=== PATIENT | male | born 1995 | race Caucasian/White ===

== ENCOUNTER 2020-03-28 18:12 | Emergency (ER) | payer SELFPAY ==
--- NOTE | ~2020-03-28 | XR_ITS ---
EXAMINATION: XR ankle RT 2V DATE: 03/28/2020 19:28 INDICATION: Right ankle fracture status post reduction. TECHNIQUE: 2 views of right ankle were obtained. COMPARISON: Right ankle radiographs at 6:35 PM FINDINGS: There is a comminuted fracture of distal fibular diaphysis. The main distal fracture fragme nt demonstrates 7 mm posterior displacement and 3 degrees medial angulation. There is a coronal fract ure of posterior malleolus with 2 mm displacement. There is an oblique fracture of medial malleolus. The distal fracture fragment demonstrates 7 degrees lateral angulation. Ankle soft tissue swelling is noted. IMPRESSION: 1. Fractures of the posterior and medial malleoli and distal fibular diaphysis with improvement in al ignment. Reviewed, dictated and finalized at location A. IMPRESSION: 1. Fractures of the posterior and medial malleoli and distal fibular diaphysis with improvement in alignment.
--- NOTE | ~2020-03-28 | XR_ITS ---
EXAMINATION: XR ankle RT 2V DATE: 03/28/2020 18:35 INDICATION: Right ankle injury and pain. TECHNIQUE: 2 views of right ankle were obtained. COMPARISON: None. FINDINGS: There is a comminuted fracture of distal fibular diaphysis with medial aspect of the fractu re line 5.2 cm proximal to the level of the tibial plafond. The main distal fracture fragment demonst rates 8 degrees lateral angulation and 20 degrees posterior angulation and one cortical width lateral displacement. There is a comminuted fracture of medial malleolus. The main distal fracture fragment demonstrates lateral angulation. There is a displaced fracture of posterior malleolus. The posterior fracture fragment demonstrates 14 mm lateral displacement. There is lateral and posterior subluxation of talar dome with respect to tibial plafond. Other joint spaces are normal. Ankle soft tissue swell ing is noted. IMPRESSION: 1. Fractures of the medial and posterior malleoli and distal fibular diaphysis. Reviewed, dictated and finalized at location A.
--- NOTE | ~2020-03-28 | CT_ITS ---
EXAMINATION: CT ankle RT wo con DATE: 03/28/2020 20:14 INDICATION: Right ankle injury. TECHNIQUE: Computed tomography (CT) of the right ankle was performed without intravenous contrast. Au tomated exposure control and iterative reconstruction technique were employed. The dose-length produc t was 541.45 mGy-cm. COMPARISON: Right ankle radiographs 03/28/2020 FINDINGS: There is a comminuted fracture of distal fibular diaphysis with medial aspect of the fractu re line 4.8 cm proximal to the level of the tibial plafond. The main distal fracture fragment demonst rates 3 mm lateral displacement, 8 degrees lateral angulation, 3 mm posterior displacement, and 4 deg abhinav posterior angulation. There is a coronal fracture of posterior malleolus. The posterior fracture fragment demonstrates 2 mm proximal displacement and 4 mm posterior displacement. There is a comminu renan fracture of medial malleolus. The main distal fracture fragment demonstrates 8 mm distraction pos teriorly, 32 degrees lateral angulation, and 24 degrees anterior angulation. There is a 5 mm fracture fragment in the medial ankle mortise posteriorly. IMPRESSION: 1. Fractures of the medial and posterior malleoli and distal fibular diaphysis. Reviewed, dictated and finalized at location A.
[2020-03-28 18:16] VITALS: BP 124/80; PULSE 89; RESP 20; TEMP 36.9; O2SAT 99
[2020-03-28] MEDS: MORPHINE SULFATE (*CRX) 4 MG/ML INJ IV PUSH (19:11)
[2020-03-28] MEDS: MIDAZOLAM HCL (*CRX) 2 MG/2 ML VIAL IV PUSH (19:11)
--- NOTE | 2020-03-28 19:17 | ED.LOWEXIN ---
HPI - Extremity Injury (Lower) General Chief Complaint: Extremity Injury, Lower Stated Complaint: AMB History of Present Illness HPI Narrative: this is a 24-year-old male that presents with some an injury to his right ankle after he was some home wrestling with some friend and misstepped and caused eversion of his right ankle causing inability to ambulate and EMS was called and EN route he was given fentanyl for pain. Currently there is a strong bruit brisk pedal pulse on the right there is no numbness but there is some tingling in his foot and toes has movement in his distal extremity pain level is about a 10/10. No other significant past medical history takes no medication. MD complaint: leg injury and ankle injury Onset (ago): hour(s) Injury: Right: ankle (Deformity) Type of Injury: eversion Place: home Severity: severe Severity scale (1-10): >10 Relieving factors: immobilization Exacerbating factors: weight bearing, movement and palpation Context: fall Associated symptoms: snap/pop sensation, swelling, tingling and unable to bear weight Other symptoms: none Treatments prior to arrival: cold therapy Related Data Allergies Allergy/AdvReac Type Severity Reaction Status Date / Time No Known Allergies Allergy Unverified 03/28/20 18:34 Review of Systems Review of Systems: All systems reviewed & are unremarkable except as noted in HPI and below PMFSH Past Medical History Medical History Patient denies medical problems Social History Social History Gender identity (if verbalized by the patient): Male Exam Const: General: no acute distress and alert Orientation/consciousness: patient oriented x3 Limitations: altered mental status HENMT: Head: normal to inspection Eyes: Conjunctivae: conjunctivae normal Pupils: Equal, round and reactive pupils present EOM: EOMs intact bilaterally Direct Ophthalmoscopy: no photophobia Neck: Neck: normal visual inspection, no lymphadenopathy and no meningeal signs Chest: Chest palpation & inspection: normal inspection of the chest and abnormal inspection of the chest Resp: Effort & Inspection: normal respiratory effort Auscultation: clear to auscultation bilaterally Cardio: Rate: regular rate Rhythm: regular rhythm GI: GI Palp: Yes Soft to palpation Auscultation: normal bowel sounds Neuro: General: patient oriented x3, moves all extremities, no meningeal signs and no focal motor deficits Extrem: Other: deformity of his right ankle with pain with palpation in his right lower leg, has a strong brisk pedal pulse on the right and has movement and is toes. Psych: Appearance: grossly normal and well kempt Mental Status: mental status grossly normal Affect: normal affect and Anxious affect present Attitude: cooperative Course Course Emergency Course: Reassessment after x-ray of his lower leg which did show fractures of the distal fibula and fracture of the medial malleolus and displaced fracture of the posterior malleolus. The ankle displacement was reduced. The patient was given 1 mg IV Versed and was given 4 mg IV of morphine prior to reduction of his some right ankle. Spoke with orthopedic physician psychologist [employer] personnel and will repeat the post reduction x-ray. Spoke to orthopedics and recommend follow-up in his office within a week, and CT scan of the right ankle prior to discharge. Vital Signs Vital signs: Vital Signs Temperature 36.9 C 03/28/20 18:16 Pulse Rate 89 03/28/20 18:16 Respiratory Rate 03/28/20 18:16 Blood Pressure 124/80 03/28/20 18:16 Pulse Oximetry 99 03/28/20 18:16 Temperature 36.9 C 03/28/20 18:16 Pulse Rate 89 03/28/20 18:16 Respiratory Rate 20 03/28/20 18:16 Blood Pressure 124/80 03/28/20 18:16 Pulse Oximetry 99 03/28/20 18:16 Procedures Orthopedic Joint Reduction Joint #1: Orthopedic Joint Reduct
[2020-03-28 19:30] VITALS: BP 121/89; PULSE 82; RESP 20; O2SAT 100
[2020-03-28 20:53] VITALS: BP 130/60; PULSE 90; RESP 20; O2SAT 100
== END 2020-03-28 20:53 | disposition home or self-care (01) ==
PROVIDERS: Emergency Provider Emergency Medicine
DX: S82.831A Other fracture of upper and lower end of right fibula, initial encounter for closed fracture (principal); S82.891A Other fracture of right lower leg, initial encounter for closed fracture; X58.XXXA Exposure to other specified factors, initial encounter
CPT/HCPCS: 27818; 73600; 73700; 96374; 96375; 99284; 99285; J2250; J2270

== ENCOUNTER 2020-03-29 13:14 | Observation (INO) | payer BC, SELFPAY ==
[2020-03-29] VITALS (13 sets, daily range): BP systolic 107–156; BP diastolic 78–93; PULSE 83–118; RESP 12–19; TEMP 36.1–37.1; O2SAT 97–100
--- NOTE | ~2020-03-29 | XR_ITS ---
EXAMINATION: XR surgery orthopedic DATE: 03/29/2020 19:08 INDICATION: Right ankle fracture. TECHNIQUE: 8 intraoperative fluoroscopic views of right ankle were obtained. I was not present. Fluor oscopy exposure time was 270 seconds. COMPARISON: Right ankle radiographs 03/28/2020 FINDINGS: There is a comminuted fracture of distal fibular diaphysis in near-anatomic alignment statu s post open reduction internal fixation with semitubular plate and multiple screws. There is a fractu re of medial malleolus in near-anatomic alignment status post open reduction internal fixation with l ag screw. There is a fracture of posterior malleolus in near-anatomic alignment status post open redu ction internal fixation with 2 lag screws. There is a band across the tibiofibular syndesmosis. IMPRESSION: 1. Fractures of medial and posterior malleoli and distal fibular diaphysis status post open reduction internal fixation. Reviewed, dictated and finalized at location A. IMPRESSION: 1. Fractures of medial and posterior malleoli and distal fibular diaphysis stat us post open reduction internal fixation.
--- NOTE | 2020-03-29 13:59 | ED.LOWEXIN ---
HPI - Extremity Injury (Lower) General Chief Complaint: Extremity Injury, Lower Stated Complaint: leg injury Time Seen by Provider: 03/29/20 13:23 Source: patient and family Mode of arrival: ambulatory Limitations: no limitations History of Present Illness HPI Narrative: 24-year-old male Was wrestling with a relative yesterday, and when he went to [facility] said relative his foot slipped and got caught in a dog gate which resulted in in his ankle being fractured and his relative winning the reid He reported to the ED at [place] yesterday where he had x-rays had a fracture dislocation reduced and had a splint put on He was asked to come over here today to be evaluated as a possible added onto the OR schedule He has no medical problems He enjoys his marijuana and his THC wax in addition to 3 or 4 airline sized bottles of alcohol a day and in fact the wrestling match occurred after same MD complaint: leg injury Related Data Allergies Allergy/AdvReac Type Severity Reaction Status Date / Time No Known Allergies Allergy Verified 03/29/20 13:22 Review of Systems Review of Systems: All systems reviewed & are unremarkable except as noted in HPI and below PMFSH Social History Social History Gender identity (if verbalized by the patient): Male Exam Const: General: healthy appearing, no acute distress and well developed Nutritional Appearance: well nourished Orientation/consciousness: patient oriented x3 (alert) and Other orientation findings (Alert) Limitations: no limitations HENMT: Head: normocephalic and atraumatic General nose exam: No nasal discharge present Face and sinus: face symmetric Mouth: Yes tongue normal and Yes moist mucous membranes Throat: other (No exudate, no erythema) Eyes: Conjunctivae: conjunctivae normal Sclera: sclerae normal EOM: EOMs intact bilaterally Neck: Neck: full ROM, no lymphadenopathy and supple Thyroid: thyroid normal Resp: Effort & Inspection: normal respiratory effort Auscultation: other (breath sounds equal) Cardio: Heart sounds: no gallops GI: GI Palp: No abdominal tenderness Auscultation: other (bowel sounds present) Back/Spine/Pelvis: Thoracic/Lumbar Spine: thoracic and lumbar spine normal to inspection Skin: General skin exam: normal color and no rashes or lesions noted Neuro: General: patient oriented x3 (alert), moves all extremities and no focal motor deficits Cranial nerves: Yes facial symmetry Speech: normal speech Motor exam (neuro): Motor abnormalities not present Extrem: General: full ROM Other: Right lower leg has a intact short leg splint on it Sensation to light touch, cap refill, and movement of the toes are all normal Psych: Affect: normal affect Course Vital Signs Vital signs: Vital Signs Temperature 36.8 C 03/29/20 13:23 Pulse Rate 109 H 03/29/20 13:23 Respiratory Rate 17 03/29/20 13:23 Blood Pressure 128/90 03/29/20 13:23 Pulse Oximetry 98 03/29/20 13:23 Temperature 36.8 C 03/29/20 13:23 Pulse Rate 109 H 03/29/20 13:23 Respiratory Rate 17 03/29/20 13:23 Blood Pressure 128/90 03/29/20 13:23 Pulse Oximetry 98 03/29/20 13:23 MDM - Extremity Injury (Lower) MDM Narrative Medical decision making narrative: Seen by Dr. Villarreal and will be taken to the OR for ORIF Discharge Plan Discharge Clinical Impression: Ankle fracture, right Patient Disposition: Still a Patient Condition: Stable Prescriptions: No Action oxycodone-acetaminophen [Percocet] 5-325 mg tablet 1 tablet PO Q6H PRN (Reason: pain) Qty: 30 RF: 0 Follow-up/Referrals: PHYSICIAN,HOSPITALITY TEAM MEMBER [Primary Care Provider] -
--- NOTE | 2020-03-29 14:27 | WPDHPUPDATE1 ---
History and Physical Update Update Date/Time: 03/29/20 14:27 History and Physical has been reviewed, including an updated exam of the patient. There are NO changes in the patient's condition. Risks, benefits, and alternatives have been discussed and questions answered. Patient agrees to proceed with procedure.
--- NOTE | 2020-03-29 14:27 | PM.CNOR ---
Assessment and Plan Additional Plan This patient is a 24-year-old male who presented last night to the [place] emergency room with a Baca type fracture dislocation of the right ankle. He has a comminuted mid fibular shaft fracture with wide diastasis between the distal fibular shaft and the tibia in association with a type 2A posterior malleolus fracture and a medial malleolus fracture. He underwent successful closed reduction by the emergency room physician and he was placed into a short-leg splint well padded. A CT scan was then obtained which demonstrated that the posterior malleolus fragment is 1 sizable piece with a 2 mm chip in the joint space that will need to be removed. It demonstrated no other fracture than as described above. The CT scan showed moderate residual subluxation of the tibiotalar joint however. He reported some partial numbness on the bottom of his foot while the ankle was dislocated but that has since resolved and he states he has no numbness or tingling now. He was not reachable this morning and we left several messages and when he did rise and answering his messages we had him come to the emergency room as soon as possible here for inspection of degree of swelling and he arrived here at about 130 and his splint was removed and he does have a little bit of and erythema spot over the dorsum of the midfoot which is likely from the splint wrapped and he has diffuse ecchymosis medially and moderate soft swelling medially but no swelling laterally or posterolaterally whatsoever. He states he was visual into in keeping his leg elevated throughout the night. His past medical history is unremarkable. He has no known drug allergies he has no history of prior surgeries or medical problems. His enjoyed excellent health. He does smoke marijuana and has smoked since age 11. On examination today he is intermittently and a fair amount of distress because of pain. He denies numbness light touch testing on the right foot. He has a 2+ dorsalis pedis pulse palpable. There is no pedal edema the only swelling is medially. The skin is intact. He has no tenderness at the proximal 1/3 of the calf or knee and denies any other injury. Heart and lung auscultation would be documented on the anesthesia evaluation note. Patient was present with his mother and I discussed the nature of the injury with both of them and I have explained that the only way to treat this properly as with open reduction internal fixation and the best results can be achieved with a direct approach the posterior malleolus in the prone position. A posterolateral plate would be applied to the fibula and the medial malleolus would be fixed with 1 or 2 cannulated screws and he will need syndesmotic fixation which would be performed with a tight rope device by Ar[employer] in all likelihood. I have discussed risks of complications with them in detail. It is a fairly high risk that he will develop some posttraumatic arthritis in this ankle over the years. I discussed the risk of injury to peripheral nerves such as the superficial branch of peroneal nerve which could leave numbness in the foot, risk of infection and blood clots and medical complications were discussed. As he does not had yet have significant swelling in the lateral or posterolateral ankle I have recommended proceeding today with open reduction internal fixation as discussed above. Patient and mother are in agreement and we will proceed as discussed. History of Present Illness HPI Consult date: 03/29/20 Chief complaint: leg injury [facility] Social History Social History Gender identity (if verbalized by the patient): Male Meds Home Medications and Allergies Home Medications Medication Instructions Recorded Confirmed Type oxycodone-acetaminophen [Percocet] 1 tablet PO Q6H PRN #30 tablet 03/28/20 Rx Allergies Allergy/AdvReac Type Severity Reaction Statu
[2020-03-29] MEDS: LACTATED RINGERS 1,000 ML 30 ML IV CONT ×3 (15:15→20:11)
[2020-03-29] MEDS: ACETAMINOPHEN 500 MG TABLET 1000 MG PO ×2 (15:25→23:00)
[2020-03-29] MEDS: KETOROLAC 15 MG/ML VIAL (*BKC) IV PUSH ×2 (15:25→23:00)
--- NOTE | 2020-03-29 15:25 | P.PNAN_ITS ---
Anes - Initial Pre Proc Eval Procedure: Operation Date: 03/29/20 14:45 Proposed Procedures p Open Reduction Internal Fixation Right Ankle Fracture(Right) - Yvan Tirado MD Date/Time: 03/29/20 15:25 Surgeon: Yvan Tirado MD Pre Op Diagnosis: leg injury Patient Data Age: 24 Gender: M Height: 5 ft 10 in Weight: 72 kg Last Vital Signs Temp 36.8 C 03/29/20 13:23 Pulse 99 03/29/20 14:22 Resp 16 03/29/20 14:22 BP 130/79 03/29/20 14:22 Pulse Ox 98 03/29/20 14:22 Allergies Allergy/AdvReac Type Severity Reaction Status Date / Time No Known Allergies Allergy Verified 03/29/20 13:22 Home Medications Medication Instructions Recorded Confirmed Type oxycodone-acetaminophen [Percocet] 1 tablet PO Q6H PRN #30 tablet 03/28/20 Rx Patient hx anesthesia problems: none Family hx anesthesia problems: none PMFSH Past Medical History Medical History Patient denies medical problems Social History Social History Gender identity (if verbalized by the patient): Male Anes - Eval Final PreProcedure Day of Procedure 03/29/20 15:25 Patient weight: normal Heart: regular rate and rhythm Lungs: decreased breath sounds Airway: Mallampati scale class II Neurological: alert and oriented Last oral intake: >/= 8 hours ASA classification: II Emergent: yes Anesthetic plan: proceed Anesthesia type and monitoring: general ETT and standard monitoring Informed Consent: The patient's anesthetic plan and its attendant risks and benefits were discussed with the patient/family/POA. Questions were solicited an d answers provided to the satisfaction of the patient/family/POA.
[2020-03-29] MEDS: ceFAZolin 2 GM/D5W 50 ML 2 GM/50 ML BAG IVPB (15:26)
[2020-03-29] MEDS: ceFAZolin SODIUM 1 GM VIAL IRRIGATION (16:07)
--- NOTE | 2020-03-29 16:58 | SUR.OPER ---
Dr. Tirado made aware of 1 hour tourniquet time
[2020-03-29] MEDS: ceFAZolin SODIUM 1 GM VIAL IV PUSH (17:44)
--- NOTE | 2020-03-29 19:08 | PM.PROC ---
Procedure Note - Detailed Date of procedure: 03/29/20 Pre-op diagnosis: leg injury Comminuted Duron C trimalleolar right ankle fracture dislocation with syndesmotic disruption Post-op diagnosis: same Procedure performed: open reduction internal fixation of Duron C trimalleolar right ankle fracture with syndesmotic stabilization Description of procedure: patient brought to the operating room and general anesthesia was administered. He was rolled to the prone position and supported on the silicone chest rolls and transverse pelvic roll his scrotum and penis were position without pressure and the right leg prepped draped usual fashion. He received 2 g of Ancef weight based vancomycin preoperatively. The right leg was scrubbed with chlorhexidine cloth before positioning and this was allowed to dry and when he was fully positioned we prepped the right leg with DuraPrep covered all the skin with Ioban. Tourniquet was elevated to 250 mmHg. A 8 in longitudinal incision was made starting midway between the lateral border of the Achilles tendon and the posterior margin of the lateral malleolus distally extending proximally and slightly anteriorly to and lateral to the fibular shaft at the mid calf. We directed our dissection distally. We identified the sural nerve and this was mobilized and retracted posteriorly. Fascia medial to the peroneal tendons was incised as well as the fascia over the flexor hallucis muscle and the peroneal vessels were identified and protected. Flexor hallucis longus muscle belly was elevated off the posterior tibia and the posterior malleolus fracture identified. There was a small comminuted chips interposed at the fracture that we could see on CT scan. The leg was allowed to externally rotate which opened up the fracture site at the posterior malleolus and I used head lamp Mag illumination for the procedure and we carefully removed hematoma from the fracture site and I did not visualize the tiny comminuted chips. We were able to reduce the fragment anatomically visualizing its interdigitation with the posterior distal tibial metaphysis and a single guide pin was placed and we looked at the lateral view and saw that the fracture was completely reduced. There is a tiny 2 mm defect in the subchondral bone that was likely the comminuted piece we saw on CT but I did not see the fragment. Reduction was anatomic. We placed a 2nd wire slightly medial to the 1st wire. The more medial wire was overdrilled and a an Arthrex 4.0 cannulated screw was placed over a washer and obtained excellent inter fragmentary compression. Second screw was placed over the more lateral wire in the same fashion but without washers there was not room for 2 washers. These screws both obtained excellent interfragmentary compression confirmed maintenance of anatomic alignment the posterior malleolus fracture. This helped reduce the fibula quite well. We then exposed the fibula. We incised the fascia anterior to the peroneal muscle and tendon group and we carefully looked for the superficial branch of the peroneal nerve throughout the dissection and I did not visualize. I suspect it came across to high in this patient from posterior to anterior. We exposed the posterior surface of the fibular shaft distally into the proximal aspect of the lateral malleolus and lateral surface of the fibular shaft proximally and we found that with a 10 hole 1/3 tubular locking plate from the [employer]threx [place] we would be able to achieve 3 bicortical screws proximal to the fractures is 3 distal to the fractures. There was significant cortical comminution in a segmental fashion intervening but with the posterior malleolus anatomically reduced the displacement of these longitudinal fragments was minimal and was able to apply 2 towel clips style bone clamps from anterior to posterior which reduced these long butterfly fragments anatomically. This gave us enough working room to be able to place in remove th
[2020-03-29] MEDS: ONDANSETRON INJ 4 MG/2 ML VIAL IV PUSH (19:56)
[2020-03-29] MEDS: fentaNYL CITRATE INJ (*CRX) 100 MCG/2 ML VIAL 25 MCG IV PUSH (20:35)
[2020-03-29] MEDS: diphenhydrAMINE HCl INJ 50 MG/ML VIAL 25 MG IV PUSH (20:35)
--- NOTE | 2020-03-29 20:50 | ADMGEN ---
This patient, Robb Infante III, was admitted to Medical Room 349-01. Patient/family oriented to hospital policies and general routines including ID bracelet, bed and alarms, visiting hours, pain management, procedures, bathroom and other care routines, personal items, smoking policy, room service/diet, and visiting hours. Valuables list has been completed. Information on how to activate the Rapid Response Team has been discussed. Patient/Family are encouraged to report perceived risks to care and to ask questions if they do not understand what they are told or what they should do.
[2020-03-29] MEDS: SODIUM CHLORIDE 0.9% IV 1,000 ML 125 ML IV CONT (21:40)
[2020-03-29] MEDS: FAMOTIDINE 20 MG TABLET PO (21:40)
[2020-03-29] MEDS: SENNA/DOCUSATE SODIUM TABLET 1 TAB PO (21:46)
[2020-03-30] MEDS: oxyCODONE HCL (*CRX) 5 MG TAB IR PO ×5 (01:05→17:35)
[2020-03-30 02:02] VITALS: BP 142/82; PULSE 79; RESP 16; TEMP 36.6; O2SAT 99
[2020-03-30 04:17] VITALS: BP 126/74; PULSE 84; RESP 14; TEMP 37; O2SAT 99
[2020-03-30] MEDS: KETOROLAC 15 MG/ML VIAL (*BKC) IV PUSH ×3 (06:40→17:32)
[2020-03-30] MEDS: ACETAMINOPHEN 500 MG TABLET 1000 MG PO ×3 (06:41→17:35)
[2020-03-30] MEDS: polyethylene glycoL 3350 17 GM POWD.PACK PO (08:24)
[2020-03-30] MEDS: FAMOTIDINE 20 MG TABLET PO (08:24)
[2020-03-30 08:26] VITALS: PULSE 80; RESP 18; O2SAT 100
--- NOTE | 2020-03-30 09:31 | PM.PNORT ---
Progress Note: A&P Additional Plan Patient is day 1 after open reduction internal fixation of Duron C trimalleolar ankle fracture dislocation right ankle. He is doing well this morning. He is not having significant discomfort at this time he is alert and oriented in good spirits. He denies any numbness or tingling in his extremities space or feet. On light touch testing he has normal sensation top to the bottom of his right foot and toes. He wiggles his toes without discomfort. Physical therapy is going to be seen him a little while for nonweightbearing ambulation and patient would like to try crutches and a walker and see which works best for him. He will be strict nonweightbearing. Assuming he does well with this we will discharge him later this morning. I would like to see him back in the office in 9 days. Subjective Subjective Date/Time Seen: 03/30/20 09:31 Objective Data Vital Signs Vital Signs: Vital Signs - 24 hr 03/29/20 13:23 03/29/20 14:22 03/29/20 15:31 Temperature 36.8 C 37.1 C Pulse Rate 109 H 99 83 Respiratory Rate 17 16 18 Blood Pressure 128/90 130/79 156/89 H Pulse Oximetry 98 98 100 03/29/20 19:26 03/29/20 19:41 03/29/20 19:56 Temperature 36.1 C L Pulse Rate 101 H 118 H 110 H Respiratory Rate 19 16 12 Blood Pressure 107/93 H 140/91 H 148/88 H Pulse Oximetry 100 98 97 03/29/20 20:11 03/29/20 20:26 03/29/20 20:40 Temperature Pulse Rate 105 H 95 96 Respiratory Rate 16 19 13 Blood Pressure 147/93 H 137/90 142/86 H Pulse Oximetry 97 97 99 03/29/20 20:57 03/29/20 21:12 03/29/20 21:42 Temperature 36.9 C 37.0 C 36.6 C Pulse Rate 98 96 89 Respiratory Rate 18 18 16 Blood Pressure 140/86 141/81 H 143/78 H Pulse Oximetry 98 98 99 03/29/20 22:50 03/30/20 02:02 03/30/20 04:17 Temperature 36.9 C 36.6 C 37.0 C Pulse Rate 88 79 84 Respiratory Rate 16 16 14 Blood Pressure 138/80 142/82 H 126/74 Pulse Oximetry 100 99 99 Intake/Output Intake/Output: Intake & Output 03/27/20 03/28/20 03/29/20 03/30/20 23:59 23:59 23:59 23:59 Intake Total 550 1920 Output Total 400 1500 Balance 150 420 Meds/Results Medications: Active Medications Generic Name Dose Route Start Last Admin Trade Name Freq PRN Reason Stop Dose Admin Acetaminophen 1,000 mg 03/30/20 00:00 03/30/20 06:41 Tylenol Tablet PO 1,000 mg Q6HR JESSICA Administration Famotidine 20 mg 03/29/20 21:00 03/30/20 08:24 Pepcid PO 20 mg Q12HR JESSICA Administration Cefazolin Sodium 1 gm in 50 mls @ 100 mls/hr 03/30/20 00:00 03/30/20 08:00 Ancef 1 Gm/D5w 50 Ml Pm IVPB 03/30/20 16:29 Infused Q8H JESSICA Infusion Vancomycin HCl 1,000 mg in 250 mls @ 250 mls/hr 03/30/20 02:00 03/30/20 02:04 Vancomycin 1,000 Mg/D5w 250 Ml IVPB 03/30/20 14:59 Infused Q12H JESSICA Infusion Ketorolac Tromethamine 15 mg 03/30/20 00:00 03/30/20 06:40 Toradol Inj IV PUSH 03/31/20 18:01 15 mg Q6HR JESSICA Administration Magnesium Hydroxide 30 ml 03/29/20 20:45 Milk Of Magnesia PO BID PRN Constipation Morphine Sulfate 2 mg 03/29/20 20:45 Morphine Sulfate Inj (*Crx) IV PUSH Q3H PRN Pain Rated 7-10 Ondansetron HCl 4 mg 03/29/20 20:45 Zofran Inj IV PUSH Q4H PRN Nausea And Vomiting Oxycodone HCl 5 mg 03/30/20 01:00 03/30/20 08:26 Roxicodone Ir Tablet PO 5 mg Q4HR JESSICA Administration Oxycodone HCl 5 mg 03/29/20 20:45 Roxicodone Ir Tablet PO Q4H PRN Pain Rated 4-6 Polyethylene Glycol 17 gm 03/30/20 09:00 03/30/20 08:24 Miralax PO 17 gm QAM JESSICA Administration Senna/Docusate Sodium 1 tab 03/29/20 21:00 03/29/20 21:46 Senokot S Tablet PO 1 tab [facility] Administration Radiology Results: ITS Impressions Intraoperative X-Ray 03/29/20 20:22 IMPRESSION: 1. Fractures of medial and posterior malleoli and distal fibular diaphysis status post open reduction internal fixation.
[2020-03-30 09:37] VITALS: O2SAT 98
[2020-03-30 10:49] VITALS: BP 130/72; PULSE 80; RESP 18; TEMP 36.8; O2SAT 100
--- NOTE | 2020-03-30 13:04 | WPDANESPN ---
Anes - Prog Note Post-Op Date/Time: 03/30/20 13:04 Cardiovascular status: normal Respiratory status: normal Airway patency: baseline Mental status: baseline Post-Op hydration status: normal Vital Signs: Last Vital Signs Temp 36.8 C 03/30/20 10:49 Pulse 80 03/30/20 10:49 Resp 18 03/30/20 10:49 BP 130/72 03/30/20 10:49 Pulse Ox 100 03/30/20 10:49 Pain Score (VAS): 07/21 I/O: Intake & Output 03/29/20 03/30/20 03/30/20 23:59 07:59 15:59 Intake Total 250 1218 702 Output Total 400 1500 Balance -150 -282 702 Post-procedural complaints: none Patient Feedback: Patient satisfied with anesthetic care.
[2020-03-30 14:30] VITALS: BP 122/74; PULSE 86; RESP 20; TEMP 36.7; O2SAT 98
--- NOTE | 2020-04-17 07:09 | PM.DS ---
DS: Admitting Diagnosis Admitting Diagnosis Admitting Diagnosis: leg injury DS: Summary Time Spent with Patient Time attestation: Total time spent providing and/or coordinating discharge services: Discharge Plan Discharge Attending physician on discharge: Yvan Tirado Consulting providers: Henry Lofton ; Zane Farnsworth V. Discharging Clinician: Yvan Tirado Anticipated Discharge Date/Time: 03/30/20 00:00 Patient Disposition: Home, Self-Care Activity: no shower, follow weight bearing status and other - see discharge instructions Diet: as tolerated Wound Care Instructions: keep dressing dry Discharge Instructions: STRICT nonweightbearing on right leg do not sit in the chair. When not ambulating, keep right leg elevated above the heart. Wiggle the toes frequently which help prevent blood clots. Use either the crutches or walker whichever proves safest. to not smoke anything. Avoid ibuprofen Aleve as these medications may slow fracture healing. Tylenol is best. During the 1st week take the Tylenol on a regular basis up to a maximum of 4000 mg per day. That would be 1000 mg 4 times per day. Use the oxycodone for breakthrough pain as needed. Use the prescribed stool softeners to prevent constipation. When you are no longer taking the narcotics he will no longer need the stool softeners. Follow-up with Dr. Tirado 1 week from Wednesday04/08/2020, call [phone] for appointment Wednesday morning after the office opens at 830. If you developed high fevers temperature above 100.4, severe unrelenting pain or swelling in the knee then call the office number above. Patient Instructions: Cefazolin (By injection), Vancomycin (By injection), How to Stop Smoking (DC), Pain Management (DC), ORIF of a Leg Fracture (DC) Follow-up/Referrals: PHYSICIAN,CAMERA OPERATOR [Primary Care Provider] - Yvan Tirado MD [Physician] - Discharge Medications: New polyethylene glycol 3350 [Miralax] 17 gram Powder In Packet 17 g PO QAM Qty: 30 RF: 0 sennosides-docusate sodium [Senokot-S] 8.6-50 mg Tablet 1 tab PO HS Qty: 120 RF: 0 acetaminophen 500 mg Tablet 1,000 mg PO Q6HR Qty: 100 RF: 0 oxycodone 5 mg Tablet 5 mg PO Q4H PRN (Reason: Pain Rated 4-6) Qty: 40 RF: 0 cephalexin [Keflex] 500 mg capsule 500 mg PO Q6H Qty: 12 RF: 0 Date of admission: 03/29/20 20:45 Primary Care Provider: PHYSICIAN,CAMERA OPERATOR Admitting Provider: Yvan Tirado Discharge Date/Time: 03/30/20 19:05 Attending physician on admission: Yvan Tirado Condition: Stable
--- NOTE | 2020-04-17 07:10 | PM.DS ---
DS: Admitting Diagnosis Admitting Diagnosis Admitting Diagnosis: leg injury DS: Summary Time Spent with Patient Time attestation: Total time spent providing and/or coordinating discharge services: Discharge Plan Discharge Attending physician on discharge: Yvan Tirado Consulting providers: Henry Lofton ; Zaen Farnsworth V. Discharging Clinician: Yvan Tirado Anticipated Discharge Date/Time: 03/30/20 00:00 Patient Disposition: Home, Self-Care Activity: no shower, follow weight bearing status and other - see discharge instructions Diet: as tolerated Wound Care Instructions: keep dressing dry Discharge Instructions: STRICT nonweightbearing on right leg do not sit in the chair. When not ambulating, keep right leg elevated above the heart. Wiggle the toes frequently which help prevent blood clots. Use either the crutches or walker whichever proves safest. to not smoke anything. Avoid ibuprofen Aleve as these medications may slow fracture healing. Tylenol is best. During the 1st week take the Tylenol on a regular basis up to a maximum of 4000 mg per day. That would be 1000 mg 4 times per day. Use the oxycodone for breakthrough pain as needed. Use the prescribed stool softeners to prevent constipation. When you are no longer taking the narcotics he will no longer need the stool softeners. Follow-up with Dr. Tirado 1 week from Wednesday04/08/2020, call [phone] for appointment Wednesday morning after the office opens at 830. If you developed high fevers temperature above 100.4, severe unrelenting pain or swelling in the knee then call the office number above. Patient Instructions: Cefazolin (By injection), Vancomycin (By injection), How to Stop Smoking (DC), Pain Management (DC), ORIF of a Leg Fracture (DC) Follow-up/Referrals: PHYSICIAN,PARKS RECREATION COORDINATOR [Primary Care Provider] - Yvan Tirado MD [Physician] - Discharge Medications: New polyethylene glycol 3350 [Miralax] 17 gram Powder In Packet 17 g PO QAM Qty: 30 RF: 0 sennosides-docusate sodium [Senokot-S] 8.6-50 mg Tablet 1 tab PO HS Qty: 120 RF: 0 acetaminophen 500 mg Tablet 1,000 mg PO Q6HR Qty: 100 RF: 0 oxycodone 5 mg Tablet 5 mg PO Q4H PRN (Reason: Pain Rated 4-6) Qty: 40 RF: 0 cephalexin [Keflex] 500 mg capsule 500 mg PO Q6H Qty: 12 RF: 0 Date of admission: 03/29/20 20:45 Primary Care Provider: PHYSICIAN,PARKS RECREATION COORDINATOR Admitting Provider: Yvan Tirado Discharge Date/Time: 03/30/20 19:05 Attending physician on admission: Yvan Tirado Condition: Stable
== END 2020-03-30 19:05 | disposition home or self-care (01) ==
LOC: ANHED 14:08 → ANHSURGERY 14:42 → ANH3MED 22:05
PROVIDERS: Admitting Provider Orthopaedic Surgery; Emergency Provider Emergency Medicine; Visit Provider Orthopaedic Surgery
PROC: (CPT 27822; principal; 2020-03-29 14:45)
DX: S82.851A Displaced trimalleolar fracture of right lower leg, initial encounter for closed fracture (principal); S93.431A Sprain of tibiofibular ligament of right ankle, initial encounter; W23.1XXA Caught, crushed, jammed, or pinched between stationary objects, initial encounter; Y93.72 Activity, wrestling; F12.90 Cannabis use, unspecified, uncomplicated
CPT/HCPCS: 27822; 27829; 97161; 97165; 99285; A9270; C1713; C1769; G0378; G0379; J0330; J0690; J1100; J1170; J1200; J1885; J2250; J2405; J2704; J3010; J3370; J7030; J7120

== ENCOUNTER 2020-06-11 12:30 | Outpatient (RCR) | payer BC, SELFPAY ==
--- NOTE | 2020-05-22 14:26 | PTOPEVAL ---
PHYSICAL THERAPY EVALUATION AND PLAN OF TREATMENT 05-22-2020 Thank you for referring Robb Infante III to [facility].? He is scheduled to be seen for therapy? 2 x/week for 3 weeks. Please review, sign, date and return this plan of care JUAN DANIEL. I agree with and certify that the following plan of care is medically necessary. Referring Physician Date Attending Provider: Yvan Tirado MD PT Outpatient Evaluation Document 05/22/20 13:35 TIANA (Rec: 05/22/20 14:25 TIANA [id number]) Outpatient Past Medical History Past Medical History Source of Past Medical History Patient Neurological History Hx Neurological Disorders No Significant History Cardiovascular History Hx Cardiac Disorders No Significant History Respiratory History Hx Respiratory Disorders No Significant History Gastrointestinal History Hx Gastrointestinal Disorders No Significant History Genitourinary History Hx Genitourinary Disorders No Significant History Musculoskeletal History Hx Fractures Yes: rt thumb, rt wrist Hx Orthopedic Surgery Yes: ORIF 03-29-2020- this admission Hematological History Hx Hematological Disorders No Significant History Endocrine History Hx Endocrine Disorders No Significant History HEENT History Hx Other HEENT Disorders Yes: gets build up of wax in ears requiring irrigation Integumentary History Hx Skin Disorders No Significant History Reproductive History Hx Reproductive Disorders No Significant History Psychosocial History Hx Psychiatric Disorders No Significant History Pain History History of Any Previous or Ongoing No Significant History Instance of Pain Evaluation Information Problem Diagnosis R ankle ORIF/ trimalleollar fx Subjective Information fell with wrestling; after Query Text:As Reported By Patient/ surgery had cast, then walking Family boot until 2 days ago, at appointment dr said he could go without it, has been walking OK without it; Prior Level of Function Activity Level (Last 3 Months) 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
--- NOTE | 2020-06-11 13:15 | PTOPEVAL ---
PHYSICAL THERAPY DISCHARGE 06-11-2020 Refer to the clinical summary section below. All of the PT goals were achieved. He is to continue with his home exercises to continue to improve ankle strength, especially PF strength. Thank you for referring Robb Infante III to [facility].? Please review, sign, date and return this discharge JUAN DANIEL. I agree with and certify that the following plan of care is medically necessary. Referring Physician Date Attending Provider: Yvan Tirado MD PT Outpatient Discharge Document 06/11/20 12:35 TIANA (Rec: 06/11/20 13:12 TIANA [id number]) Subjective Information Robb reports: was able to Query Text:As Reported By Patient/ run and catch his dog; no Family problems with doinjg things- able to do everything; feel like back to normal; not having any pain; feel like ready to be finished with PT; Pain Assessment Timing of Pain Assessment Timing of Pain Assessment Assessment Self Report Self Report Pain Level 0 Pain Score Pain Score 0: Self Report Lower Extremity Range of Motion General Lower Extremity Range of Motion Gross Lower Extremity Range of Motion long sitting: ankle active ROM Comments : DF 5', PF 45'; inversion 35' , eversion 25'; Lower Extremity Muscle Strength Testing General Lower Extremity Strength Gross Lower Extremity Strength SLS R x 32 sec with good stability single leg PF x 10 reps, with ~ 50% of range of the L LE;; sitting with 3# ankle wt on forefoot- inversion and eversion x 20 reps; leg press x 10 reps: B 110#/L only 90# / R only 90#; B ankle press 110# B UE Lift box floor/waist 60# x 5 reps; used correct body mechanics- reports no pain, but tired and out of shape Gait Assessment Gait Assessment Ambulation Assistive Devices None Ambulation Ability Independent Additional Ambulation Comments good gait pattern, no limp with walking; 2 Minute Walk Total Distance Walked (feet) 525 2 Minute Walk Gait Speed Score (feet/ 4.37 second) Number of Breaks Required 0 Bike Exercise Bike Extremity Bilateral Lower Type of Bike Recumbent Bike Resistance level 3 resistance Duration (minutes) 5 Exercise Comments
== END 2020-06-11 14:58 | disposition home or self-care (01) ==
LOC: ANHPT 12:30
PROVIDERS: Visit Provider Orthopaedic Surgery
DX: Z47.89 Encounter for other orthopedic aftercare (principal)
CPT/HCPCS: 97110; 97140; 97161

== ENCOUNTER 2022-12-17 14:55 | Emergency (ER) | payer OTHER, SELFPAY ==
[2022-12-17 15:03] VITALS: BP 118/72; PULSE 79; RESP 16; TEMP 36.6; O2SAT 100
--- NOTE | 2022-12-17 15:06 | ED.GENADULT ---
HPI - General Adult General Chief complaint: Abdominal Pain Stated complaint: LUMP ON ABDOMEN/LEG PAIN Time Seen by Provider: 12/17/22 15:06 Source: patient, RN notes reviewed and old records reviewed Mode of arrival: ambulatory Limitations: no limitations History of Present Illness HPI narrative: 27 year old male presents to the [facility] with complaints of a bump to the left groin area for the last several months. States he noticed ago little bit bigger over the last couple of days. No redness, no pain. Occasionally has pain to the upper left thigh. States he notices it more when he standing up in in the shower. Onset (ago): month(s) Treatments prior to arrival: none Related Data Home Medications Medication Instructions Recorded Confirmed No Home Medications 12/17/22 12/17/22 Allergies Allergy/AdvReac Type Severity Reaction Status Date / Time No Known Allergies Allergy Verified 12/17/22 15:09 Review of Systems Review of Systems: All systems reviewed & are unremarkable except as noted in HPI and below Constitutional: Constitutional: Reports no additional constitutional complaints Eyes: Eyes: Reports no additional eye complaints ENT: Reports system reviewed and no additional complaints, except as documented Cardiovascular: Cardiovascular: Reports no additional cardiovascular complaints, Denies chest pain and Denies dyspnea Respiratory: Respiratory: Reports no additional respiratory complaints, Denies chest congestion, Denies cough and Denies dyspnea Gastrointestinal: Gastrointestinal: Reports as per HPI, Denies abdominal pain, Denies melena, Denies bloating, Denies change in bowel habits, Denies constipation, Denies GI cramping, Denies dysphagia, Denies nausea, Denies odynophagia, Denies vomiting and Denies hematemesis Genitourinary: Genitourinary: Reports no additional male genitourinary complaints Musculoskeletal: Musculoskeletal: Reports no additional musculoskeletal complaints Integumentary/Breasts: Skin/Breast: Reports system reviewed and no additional complaints, except as docu Neurologic: Reports system reviewed and no additional complaints, except as documented Psychiatric: Psychiatric: Reports no additional psychiatric complaints Allergic/Immunologic: Allergic/Immunologic: Reports no additional allergic/immunologic complaints PMFSH Past Medical History Medical History Patient denies medical problems Family History Family History Grandparent Diabetes mellitus Social History Social History Smoking status: Current every day smoker Second hand tobacco smoke exposure: Yes Additional smoking assessment comments: smokes marijuana everyday since he was 11 Alcohol intake: current Drinks per week: 7 Substance use: current Substance use type: marijuana Last use: 03/29/20 Gender identity (if verbalized by the patient): Male Spiritual care concerns: No Comments At the time of my signature, I reviewed and agree with the nursing past medical, surgical, social, and family history. There is no relevant family history pertinent to the patient complaint. Exam Const: General: cooperative, healthy appearing, comfortable, no acute distress, well developed, alert and well nourished Nutritional Appearance: well nourished Orientation/consciousness: patient oriented x3 Limitations: no limitations HENMT: Head: normal to inspection Ears: hearing grossly normal bilaterally and external ears normal Face/Nose/Sinus: Normal external nose present, Normal nares present, Normal nasal mucous membranes and turbinates present and normal facial exam Face and sinus: normal facial exam Eyes: General: appearance normal, both eyes and all related structures Alignment and Position: alignment normal Periorbital: periorbital findings n
== END 2022-12-17 15:24 | disposition home or self-care (01) ==
PROVIDERS: Emergency Provider Nurse Practitioner
DX: K46.9 Unspecified abdominal hernia without obstruction or gangrene (principal)
CPT/HCPCS: 99211; G0463

== ENCOUNTER 2023-01-18 09:24 | Outpatient (CLI) | payer OTHER, SELFPAY | END 2023-01-18 09:25 | disposition home or self-care (01) | LOC: ANHSURGERY 09:30 | PROVIDERS: Visit Provider Surgery | DX: K40.90 Unilateral inguinal hernia, without obstruction or gangrene, not specified as recurrent (principal); Z01.818 Encounter for other preprocedural examination | CPT/HCPCS: 36415; 86850; 86900; 86901 ==

== ENCOUNTER 2023-01-21 02:12 | Day surgery (SDC) | payer OTHER, SELFPAY ==
[2023-01-15 14:37] VITALS: BMI 19.9
--- NOTE | 2023-01-15 14:48 | PC.NURSE ---
Report to the Outpatient Waiting Room, entrance under the green pavilion located off [facility], at 1000 on 01/21/23. Planned Procedure Time: 1200. Time changes happen often and if your time is changed the preop area will call you the afternoon before. - You and your visitor will be asked to self-screen and do not enter if you have any COVID symptoms. - A mask is optional within the hospital at this time. Patients may have clear liquids (water, carbonated beverages, clear teas, apple juice) until 3 hours prior to surgery with a maximum of 20 ounces. - No food from midnight until time of surgery. Take the following medications with a SIP of water the morning of surgery: n/a DO NOT STOP ANY OF YOUR OTHER PRESCRIPTION MEDICATIONS PRIOR TO SURGERY ?EXCEPT THE FOLLOWING Medications to discontinue per physician n/a Date to take last dose n/a Please no make-up, nail burmese, hairspray, perfume, deodorant, or body powder the day of surgery. No jewelry (including any body piercings) or valuables the day of surgery, leave them at home. Please take a shower or bath the night before and the morning of, surgery with an antibacterial soap-Hibiclens (Chlorhexadine Gluconate 1%). Wear comfortable, loose fitting clothing. - Jewelry must be removed prior to entering the operating room. Rings and piercings that are not removed may be cut off. - The hospital will not accept responsibility for valuables. - Please leave all valuables, including medications, at home the day of surgery. If you are going home after surgery, a licensed local intermodal truck driver must drive you home. - NO public transportation without another adult if you receive anesthesia. - We recommend that an adult stay with you for 24 hours following discharge. - We also recommend that you do not drive, make important decision, drink alcoholic beverages, or take any drugs that were not prescribed by your health care provider for at least 24 hours after your discharge time. Follow any additional instructions given to you from your surgeon. If you or anyone in your household have experienced Covid symptoms in the past week, please notify your surgeon or the nurse liaison at the phone number below for possible testing. Telephone instructions given to patient and asked if any additional questions and then verbalized understanding. Patient advised to call surgeon office or pre surgery nurse liaison [phone] if any additional questions.
[2023-01-21] VITALS (9 sets, daily range): BP systolic 120–140; BP diastolic 76–91; PULSE 60–102; RESP 12–20; TEMP 36.8–36.9; O2SAT 99–100
[2023-01-21] MEDS: ACETAMINOPHEN 500 MG TABLET 1000 MG PO (10:27)
[2023-01-21] MEDS: LACTATED RINGERS 1,000 ML 30 ML IV CONT ×2 (10:50→13:30)
--- NOTE | 2023-01-21 11:35 | WPDHPUPDATE1 ---
History and Physical Update Update Date/Time: 01/21/23 11:35 History and Physical has been reviewed, including an updated exam of the patient. There are NO changes in the patient's condition. Risks, benefits, and alternatives have been discussed and questions answered. Patient agrees to proceed with procedure.
[2023-01-21] MEDS: KETOROLAC 15 MG/ML VIAL (*BKC) IV PUSH (11:45)
--- NOTE | 2023-01-21 11:53 | WPDANESEPPF ---
Anes - Initial Pre Proc Eval Procedure: Operation Date: 01/21/23 12:00 Proposed Procedures p Robotic Assisted Left Inguinal Hernia Repair with Mesh - Alma Kaur MD Date/Time: 01/21/23 11:53 Surgeon: Alma Kaur MD Pre Op Diagnosis: left inguinal hernia Patient Data Age: 27 Gender: M Height: 1.75 m Weight: 61.24 kg Last Vital Signs Temp 36.8 C 01/21/23 10:15 Pulse 102 H 01/21/23 10:15 Resp 18 01/21/23 10:15 BP 138/76 01/21/23 10:15 Pulse Ox 100 01/21/23 10:15 O2 Del Method Room Air 01/21/23 10:15 Allergies Allergy/AdvReac Type Severity Reaction Status Date / Time No Known Allergies Allergy Verified 01/21/23 10:22 Home Medications Medication Instructions Recorded Confirmed Type No Home Medications 12/17/22 01/21/23 History Patient hx anesthesia problems: none Family hx anesthesia problems: none Results Review: All pre-operative results and documents have been reviewed as part of the pre-operative evaluation. [facility] Past Medical History Medical History (Updated 01/21/23 @ 11:53 by Almas Valentin MD) Marijuana abuse, continuous Patient denies medical problems Surgical History Surgical History Ankle fracture, right Family History Family History Grandparent Diabetes mellitus Social History Social History Smoking status: Current every day smoker Tobacco type: e-cigarettes/vaping Second hand tobacco smoke exposure: Yes Additional smoking assessment comments: vaps 5-20x/day Alcohol intake: current Drinks per week: 10 Substance use: current Substance use type: marijuana Other substance usage details: daily Last use: 03/29/20 Living arrangements: with family Occupation/Education: occupation 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 Informed Consent: The patient's anesthetic plan and its attendant risks and benefits were discussed with the patient/family/POA. Questions were solicited and answers provided to the satisfaction of the patient/family/POA.
[2023-01-21] MEDS: ceFAZolin 2 GM/D5W 50 ML 2 GM/50 ML BAG IVPB (12:00)
[2023-01-21] MEDS: BUPIVACAINE/EPINEPHRINE 0.5% 10 ML VIAL 30 ML INFILTRATE (12:38)
--- NOTE | 2023-01-21 13:28 | P.OP_ITS ---
Procedure Note - Detailed Date of Procedure 01/21/23 Pre-op Diagnosis left inguinal hernia Post-op Diagnosis Same Procedure Performed robotic assisted left inguinal hernia repair with mesh Surgeon Alma Kaur MD Anesthesia General Indications 27 y/o M c LIH and worsening groin pain over last few weeks Findings pantaloon left inguinal hernia Description of Procedure Patient was brought into the operating room and placed in the supine position. After adequate induction of general anesthesia, the patient was prepped and draped in normal sterile fashion. A time-out was then done to verify the patient's identity, as well as the procedure being performed. I began by making a 8 mm incision in the supraumbilical region, a Veress needle was then placed into the peritoneal cavity. CO2 gas was then insufflated and after adequate pneumoperitoneum was achieved, the Veress needle was removed. I then placed an 8 mm trocar through this incision. I then placed the endoscope through this trocar site and under direct visualization placed 2 further 8 mm ports in the right and left mid abdomen. The [employer] robot was then docked to the 3 trocar sites. I then scrubbed out and went to the robotic console. Upon examining the pelvis, it was noted that the patient had a large left inguinal hernia. The right side was examined and no hernia defect was noted. I began by making a preperitoneal flap approximately 6 cm superior to the defect. This flap was carried medially past the umbilical ligaments and laterally to the transversalis. It then began dissection of my medial compartment taking this down to the pubic tubercle. A large direct defect was noted and dissected. I then began the lateral dissection taking this down to the transversalis fascia. Once these compartments were achieved, I began dissection around the cord structures. A smaller sized indirect hernia was noted at this point. Using careful dissection, was able to reduce indirect hernia sac off the cord structures. Once this was adequately done, I went ahead and placed a large piece of 3D Max mesh into the abdominal cavity. The mesh was carefully positioned, centering the center of the mesh over the larger direct defect. Once this was done, was very satisfied with our repair. Using 3-0 Vicryl sutures, I tacked the mesh medially to Alfredo's ligament. Two lateral sutures were placed from the mesh to the transversalis fascia. I then closed the peritoneal flap with a running 2.0 V Lock suture. The abdomen was then desufflated, and all ports were removed. All incisions were then closed with the 4.0 monocryl suture. Dermabond was placed on each wound. The patient tolerated the procedure well, was extubated in the operating room postoperatively, and will now be transferred to the recovery room in stable con dition. Implants large 3DMax mesh Estimated Blood Loss 10 Drains No Packing No Pathology None sent Complications No immediate complications Condition Stable Disposition PACU [facility] Billing Surgery - Charge Forward: Surgery Billing
[2023-01-21] MEDS: oxyCODONE HCL (*CRX) 5 MG TAB IR PO (15:18)
== END 2023-01-21 15:43 | disposition home or self-care (01) ==
PROVIDERS: Visit Provider Surgery
PROC: 8E0Y4CZ Robotic Assisted Procedure of Lower Extremity, Percutaneous Endoscopic Approach (ICD-10-PCS; CPT 49650; principal; 2023-01-21 12:00)
DX: K40.90 Unilateral inguinal hernia, without obstruction or gangrene, not specified as recurrent (principal); F17.290 Nicotine dependence, other tobacco product, uncomplicated; F12.10 Cannabis abuse, uncomplicated
CPT/HCPCS: 49650; S2900; 36415; 86850; 86900; 86901; A9270; C1781; J0690; J1100; J1170; J1885; J2250; J2405; J2704; J3010; J7030; J7120

== ENCOUNTER 2023-12-06 16:39 | Emergency (ER) | payer BC, SELFPAY ==
--- NOTE | ~2023-12-06 | XR_ITS ---
XR hand LT min 3V 12/06/2023 17:02 Indication: Left hand pain Procedure: 3 views left hand Comparison: No prior studies for comparison. Findings: There is a comminuted extra-articular fracture of the fifth metacarpal with moderate ventra l angulation. No significant soft tissue abnormality. No foreign bodies. Impression: 1: Comminuted extra-articular fracture left fifth metacarpal with ventral angulation. Reviewed, dictated and finalized at location A. Impression: 1: Comminuted extra-articular fracture left fifth metacarpal with ventral angul ation.
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
[2023-12-06 16:57] VITALS: BP 132/84; PULSE 72; RESP 16; TEMP 37.4; O2SAT 100
== END 2023-12-06 17:35 | disposition home or self-care (01) ==
PROVIDERS: Emergency Provider Nurse Practitioner Family
DX: S62.307A Unspecified fracture of fifth metacarpal bone, left hand, initial encounter for closed fracture (principal); W22.09XA Striking against other stationary object, initial encounter; F17.290 Nicotine dependence, other tobacco product, uncomplicated
CPT/HCPCS: 29125; 73130; 99214; G0463

== ENCOUNTER 2023-12-09 15:11 | Outpatient (CLI) | payer BC, SELFPAY ==
--- NOTE | ~2023-12-09 | XR_ITS ---
EXAM: XR hand LT min 3V DATE: 12/09/2023 15:47 HISTORY: FRACTURE X4 DAYS AGO, KEEP IN SPLINT . COMPARISON: 12/06/2023. FINDINGS: Normal mineralization. Radiology detail obscured by cast material. Redemonstration of the mildly comminuted left fifth metacarpal midshaft fracture with slightly improved but persistent anter ior angulation of 37 degrees (previously 50 degrees). No healing changes detected. IMPRESSION: Slightly improved but persistent anterior angulation of the left fifth metacarpal shaft f racture. Reviewed, dictated and finalized at location K. IMPRESSION: Slightly improved but persistent anterior angulation of the left fi fth metacarpal shaft fracture.
== END 2023-12-09 15:12 | disposition home or self-care (01) ==
LOC: ANHIMG 15:36
PROVIDERS: Visit Provider Physician Assistant Surgical
DX: S62.327A Displaced fracture of shaft of fifth metacarpal bone, left hand, initial encounter for closed fracture (principal); X58.XXXA Exposure to other specified factors, initial encounter
CPT/HCPCS: 73130

== ENCOUNTER 2023-12-27 15:05 | Outpatient (CLI) | payer SELFPAY ==
--- NOTE | ~2023-12-27 | XR_ITS ---
EXAM: XR hand LT min 3V DATE: 12/27/2023 15:24 HISTORY: S62.337A - Displaced fracture of neck of fifth metacarpal... . COMPARISON: 12/09/2023, 12/06/2023. FINDINGS: Radiographic detail obscured by overlying cast material. Redemonstration of the comminuted left fifth metatarsal shaft fracture, with unchanged anterior angulation. There is increased lateral displacement of the dominant fracture fragment. IMPRESSION: Comminuted and angulated left fifth metatarsal shaft fracture. Increased lateral displace ment of the dominant fracture fragment. No definite interval healing changes appreciated. Correlate f or adequate immobilization. Reviewed, dictated and finalized at location K. IMPRESSION: Comminuted and angulated left fifth metatarsal shaft fracture. Incr eased lateral displacement of the dominant fracture fragment. No definite inter arnie healing changes appreciated. Correlate for adequate immobilization.
== END 2023-12-27 15:06 | disposition home or self-care (01) ==
PROVIDERS: Visit Provider Physician Assistant Surgical
DX: S62.337D Displaced fracture of neck of fifth metacarpal bone, left hand, subsequent encounter for fracture with routine healing (principal); X58.XXXD Exposure to other specified factors, subsequent encounter
CPT/HCPCS: 73130